=== PATIENT | female | born 1990 | race Native Hawaiian/Other Pacific Islander ===

== ENCOUNTER 2018-06-22 22:45 | Outpatient (CLI) | payer OTHER ==
[~2018-06-22] VITALS: Ht 165.1 cm; Wt 94.3 kg
[2018-06-22 23:10] VITALS: BP 110/60
[2018-06-22] MEDS ORDERED: PRENTAB9 PO (23:55)
[2018-06-22] MEDS ORDERED: BENA25CA4 PO (23:55)
--- NOTE | 2018-06-24 16:33 | HPE ---
DATE OF ADMISSION: 06/22/2018 27-year-old 3, para 2, LMP 10/24/2017, EDC 08/22/2018 at 31 and three with history of right lower quadrant pain when she is coughing and she has a significant cold. Past history: In 2005, 41 weeks, induction of labor, vaginal delivery, male, 7 pounds. In 07/2007, 40 weeks, spontaneous delivery, male, 6 pounds 1 ounce. Risk factors: Dichorionic diamniotic twins, elevated blood sugar with a 1-hour glucose, questionable UTI at the present time, and has a significant cold. Labs: Are A+, HIV negative, hepatitis negative, RPR negative, rubella immune. Varicella immune. Pap normal. Urine negative. 1-hour GTT was 165. Her 3-hour GTT fasting was 91, 1-hour 183, 2-hour 155, and 3-hour 137. On examination, she appears congested today. No wheezes or rhonchi. Lungs are clear to the bases. She has a nonproductive cough, although occasionally there is a bit of phlegm. She does have right lower quadrant tenderness every time she coughs. There is no vaginal bleeding or loss. She had a category one strip on both twins and ultrasound done showed MAYA over the spot with anterior placenta and we can see the limb pushing up on that specific area but no evidence of subplacental hemorrhage or bleeding. Urine is 1.015, pH 6, nitrites positive, leukocytes positive. Blood pressure 110/60, respirations 18, pulse 115, temperature 98.5. Rest of the examination is unremarkable. Normocephalic, atraumatic. Neck full range of motions. Pupils equal and reactive to light. Chest is not congested but she has significant sinus irritation and a dripping nose. Oropharyngeal airway is normal, slight reddening. Chest is clear. Distal pulses are symmetric. No evidence of DVT, PE or superficial phlebitis. No CVA tenderness. Four quadrant bowel sounds are noted. Appropriate symphysis fundus height. No rashes, lesions or pruritus. She does have tattoos. No arthralgia or myalgia. No complaint of joint pain. No complaint of cough, wheeze, shortness of breath or dyspnea on exertion. No bleeding. Neurologically complete. No incontinency, urgency or frequency. No nausea, vomiting, diarrhea or constipation. Her diabetic issues, as mentioned, she had a 3-hour elevated GTT. No abnormal Pap smears. Past medical, surgical, family history is noncontributory. She does not smoke, drink or abuse drugs. She is . Good support systems and no domestic violence. In summary we have a 33-week, dichorionic diamniotic twins with issues of a cough, cold and right lower quadrant pain secondary to coughing. We recommend a belly band and cold medication, hydration, humidification and followup with routine appointment. The patient was discharged undelivered.
== END 2018-06-23 01:45 | disposition home or self-care (01) ==
LOC: M LDO 22:45 → EDBD 22:45 → M LDO 06-23 01:45
PROVIDERS: ATTEND Obstetrics & Gynecology
DX: O30.043 Twin pregnancy, dichorionic/diamniotic, third trimester (principal); O99.513 Diseases of the respiratory system complicating pregnancy, third trimester; J00 Acute nasopharyngitis [common cold]; Z3A.31 31 weeks gestation of pregnancy
CPT/HCPCS: 59025; 76815; 87088; G0378; G0463

== ENCOUNTER 2018-07-07 01:13 | Outpatient (CLI) | payer OTHER ==
[~2018-07-07 01:13] MED LIST: BENA25CA4 PO; PRENTAB9 PO
--- NOTE | 2018-07-07 03:28 | IPNPDOC ---
Text Note Date of Service The patient was seen on 07/07/18. NOTE Triage Note Claudia is a 27yo F with di-di twin at 33w3d who presents tonight for ctx. She states for 2 hours she noticed increasingly regular and more uncomfortable ctx. She states she has stayed well hydrated. No recent intercourse. Has not been exerting herself. No other symptoms. She notes she had routine monitoring yesterday in the office and was noted to have some ctx on the monitor also, but wasn't feeling them then. No abnormal vaginal discharge. No LOF. Good movement. No f/c/n/v/CP/SOB. 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 No regular ctx on toco. SCE 1/thick/high. Reassuring status x2 and normal vitals. Plan: -safe for discharge home -discussed return precautions -discussed continued good hydration -keep next routine monitoring and COB visit on 07/08/18 MD Nancy Cuevas Katrina D MD Jul 07, 2018 03:28
== END 2018-07-07 03:26 | disposition home or self-care (01) ==
LOC: M LDO 01:13
PROVIDERS: ATTEND Obstetrics & Gynecology
DX: O47.9 False labor, unspecified (principal); O30.043 Twin pregnancy, dichorionic/diamniotic, third trimester; Z3A.33 33 weeks gestation of pregnancy
CPT/HCPCS: 59025; G0378; G0463

== ENCOUNTER → 2018-07-12 | Outpatient (CLI) | payer OTHER ==
--- NOTE | 2018-07-13 04:58 | REP ---
Clinical: Twin gestation. Growth evaluation Comparison: None . Findings: Examination demonstrates diamniotic dichorionic twin gestation. Cervix appears closed. Concordant growth is noted. Gestational age by LMP at 34 weeks 1 day with estimated date of delivery 08/22/2018 . TWIN A: Twin A identified in cephalic presentation along the maternal left side. Placenta is noted anterior and grade grade II without evidence for placenta previa or abruption. motion is appreciated. Amniotic fluid volume is normal and the deepest pocket measures 5.2 cm cm. FHR equals 144 beats per minute. BPD 8.2 cm 32 weeks 6 days HC 29.8 cm 33 weeks 0 days AC 27.8 cm 31 weeks 6 days FL 6.5 cm 33 weeks 3 days HL 5.7 cm 33 weeks 1 day HC/AC ratio 1.07 Umbilical cord SD ratio: 2.73 Gestational age by current measurements: 32 weeks 6 days . Estimated weight 1997 grams ( 18th percentile). Limited anatomical assessment without obvious abnormality. Normal visualized structures including lungs, four-chamber heart/ventricular outflow tracts, diaphragm, stomach, cord insertion, three-vessel cord, kidneys/bladder. ------- TWIN B: Twin B identified in cephalic presentation along the maternal right side. Placenta is noted anterior and grade grade II without evidence for placenta previa or abruption. motion is appreciated. Amniotic fluid volume is normal and the deepest pocket measures 4.8 cm cm. FHR equals 140 beats per minute. BPD 8.0 cm 32 weeks 1 day HC 29.3 cm 32 weeks 6 days AC 38.5 70 34 weeks 3 days FL 6.4 cm 33 weeks 0 days HL 5.8 cm 33 weeks 4 days HC/AC ratio 0.96 Umbilical cord SD ratio: 3.29 Gestational age by current measurements: 33 weeks 1 day . Estimated weight 2232 grams ( 36 percentile). Limited anatomical assessment without obvious abnormality. Normal visualized structures including lungs, diaphragm, stomach, cord insertion, three-vessel cord, kidneys/bladder. Impression: Diamniotic dichorionic twin gestation demonstrating appropriate concordant growth. No gross abnormalities are identified. Electronically Signed by Franklin Correa MD 07/13/2018 04:50 A
== END ==
LOC: M RAD 17:20
PROVIDERS: ATTEND Obstetrics & Gynecology
DX: O30.043 Twin pregnancy, dichorionic/diamniotic, third trimester (principal); Z3A.34 34 weeks gestation of pregnancy

== ENCOUNTER 2018-08-04 05:38 | Inpatient (IN) | payer OTHER ==
[~2018-08-04] VITALS: Ht 165.1 cm; Wt 98.5 kg
[2018-08-04] VITALS (26 sets, daily range): BP systolic 116–174; BP diastolic 55–90
[2018-08-04] MEDS ORDERED: LR 1,000 ML IV SCH (06:53)
[2018-08-04] MEDS ORDERED: LACTATED RINGER'S 1000 ML IV STA (06:53)
[2018-08-04 07:09] LABS: HEMATOCRIT 30.5 % (36.0-47.0); HEMOGLOBIN 9.7 g/dl (12.0-15.5); MEAN CORPUSCULAR HEMOGLOBIN 25.7 pg (27.0-33.0); MEAN CORPUSCULAR HGB CONC 31.8 g/dl (32.0-36.5); MEAN CORPUSCULAR VOLUME 80.7 fl (80.0-96.0); PLATELET COUNT, AUTOMATED 216 10^3/uL (150-450); RED BLOOD COUNT 3.78 10^6/uL (4.00-5.40); WHITE BLOOD COUNT 12.2 10^3/uL (4.0-10.0)
[2018-08-04] MEDS ORDERED: FENTANYL 2MCG/ML ROPIVACAINE 0.2% IN 0.9% NACL 100ML IVBAG As Ordered ONE (07:30)
[2018-08-04] MEDS ORDERED: PENICILLIN G POTASSIUM IV 5 MU in D5W MINI-BAG PLUS 100 ML IV STA ×2 (07:34→07:45)
[2018-08-04] MEDS ORDERED: REFRIGERATOR IV KEYS XX PRN ×2 (07:45→08:15)
[2018-08-04] MEDS ORDERED: FENTANYL/ROPIVACAINE/NACL BAG 100 ML EPIDURAL SCH ×2 (07:45→08:15)
[2018-08-04] MEDS ORDERED: ePHEDrine SULFATE 25 MG/5 ML(5MG/ML) SYRINGE IV PRN (08:15)
[2018-08-04] MEDS ORDERED: EPIDURAL COMMENT XX SCH (08:15)
[2018-08-04] MEDS ORDERED: LACTATED RINGER'S 1000 ML IV PRN (08:15)
[2018-08-04] MEDS ORDERED: ONDANSETRON 4MG/2ML VIAL (J2405) IV PRN (08:15)
[2018-08-04] MEDS ORDERED: diphenhydrAMINE INJ 50MG/ML VIAL (J1200) IV PRN (08:15)
[2018-08-04] MEDS ORDERED: EPIDURAL/PCA KEYS XX PRN (08:15)
[2018-08-04] MEDS ORDERED: NALOXONE INJ 0.4 MG/1 ML VIAL (J2310) IV PRN (08:15)
--- NOTE | 2018-08-04 08:35 | HPEPDOC ---
Obstetrical History & Physical General Date of Admission Aug 04, 2018 at 05:38 History of Present Illness Claudia is a 27yo with di-di twin gestation at 37w3d by embryo transfer date presenting for CC of LOF. Pt states her water broke at 0440 when she was up using the bathroom, clear, she is now having very painful regular ctx. No vaginal bleeding, good movement. No n/v/f/c. Chief Complaint: Contractions, term, LOF, term Information Provided By: Patient Care Care: Good Care Dating Final EDC: Aug 22, 2018 Final EDC by: LMP (embryo transfer date) Antepartum Course Diagnos(e)s complicated by Class B DM vs A1GDM, no medications. She also had starting BMI of 30. 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: No pertinent history Past Medical History Medical History Starting BMI of 30 Surgical History: Appendectomy, [place] teeth Family History Significant Family History: No pertinent family hx Social History Marital Status: Family situation: Spouse/partner home Psychosocial History: No pertinent psych hx * Smoker: non-smoker Alcohol: Denies Drugs: denies Imunizations Tdap status: current Influenza Status: current Allergies Coded Allergies: No Known Allergies (Unverified , 07/07/18) Medications Scheduled Diphenhydramine HCl (Benadryl Allergy) 25 Mg Cap, 1 CAP PO QPM Multivitamins/ ( 27-0.8 mg) 1 Tab Tab, 1 TAB PO DAILY Physical Examination Physical Examination GENERAL: Alert and oriented times three. ABDOMEN: Gravid and non-tender to touch. FETUS: Twin A is vertex (VTX) by sterile vaginal examination (SVE), both fetuses are cephalic by TAUS EXTREMITIES: trace pedal edema Pertinent Laboratoy Data Blood Type: A+ RBC Antibody Screen: Negative HIV: Negative Hepatitis B: Negative Hepatitis C: Unknown Rapid Plasma Reagin: Nonreactive Rubella: Immune Varicella: Immune Chlamydia/Gonorrhea: Negative Group B Streptococcus: Positive Cystic Fibrosis: Negative Glucose Tolerance Test: 165 (3hr: 91/183/155/137) Anatomy Ultrasound Ultrasound Date: Apr 12, 2018 Placenta Location: Other (Twin A anterior and twin B anterior) Normal Anatomy: Yes (both twins normal anatomy) Placenta Previa: No Other Ultrasounds 07/12 growth scan at 36wk at [facility]: cephalic/cephalic, 18%ile (1997g) and 36%ile (2232g) Steroid Therapy Steroid Therapy: No Vaginal Examination Dilation: 6 cm Effacement: 80% Station: -2 Cervical Consistency: Soft Cervical Position: Middle Presentation: Cephalic presentation Assessment Heart Rate (FHR): 120 (twin B 130's) Variability: Moderate Accelerations: Positive Decelerations: None Tocometer Contractions: Yes Frequency: regular, every 2-5 min. Duration: greater than 60 seconds Strength: palpated as strong Assessment/Plan Assessment Claudia is a 27yo with di-di twin gestation at 37w3d by embryo transfer date presenting in active labor with SROM at 0440. SCE /-2, grossly ruptured with clear fluid. Cephalic/Cephalic by SCE and TAUS. GBS positive. 36wk growth scan showed concordant growth (18%/36%). Patient strongly desires vaginal delivery. complicated by Class B DM vs A1GDM, no medications. She also had starting BMI of 30. Plan Admit and orient. Counseled and consented for . Discussed increased risk for conversion to section and patient is accepting of this. Diet: NPO for now Group B Streptococcus (GBS) positive, PCN per protocol Labs and intravenous (IV) per unit protocol. Lactated Ringers (LR): Bolus 500 mL, then at 125 mL/hr. Anticipate normal spontaneous delivery () C-S as appropriate I requested that epidural be expedited MD Nancy Cuevas Katrina D MD Aug 04, 2018 07:12
[2018-08-04] MEDS: PRENATAL VITAMINS CHEWABLE TABLET PO SCH (09:00)
[2018-08-04] MEDS ORDERED: PENICILLIN G POTASSIUM IV 2.5 MU in APPROPRIATE DILUENT 1 EA IV SCH ×2 (11:45→12:00)
[2018-08-04] MEDS ORDERED: OXYTOCIN 30 UNITS IN 0.9% NaCl 500ML IV BAG (J2590) As Ordered ONE ×2 (12:46→14:27)
[2018-08-04] MEDS ORDERED: OXYTOCIN DRIP 30 UNITS in APPROPRIATE DILUENT 1 EA IV SCH ×4 (14:24)
[2018-08-04] MEDS ORDERED: MEASLES,MUMPS,RUBELLA VACCINE INJ (MMR-II) (90707) SC SCH (14:30)
[2018-08-04] MEDS ORDERED: miSOPROStol 200 MCG TAB (S0191) PR ONE (14:30)
[2018-08-04] MEDS ORDERED: DIBUCAINE 1% OINTMENT 30GM TOP PRN (14:30)
[2018-08-04] MEDS ORDERED: ACETAMINOPHEN TAB 650MG DOSE (2X325MG) PO PRN (14:30)
[2018-08-04] MEDS ORDERED: RHOGAM 300 MCG (1500 IU) INJ (J2790) IM SCH (14:30)
[2018-08-04] MEDS ORDERED: METOCLOPRAMIDE INJ 10MG/2ML VIAL (J2765) IV PRN (14:30)
--- NOTE | 2018-08-04 14:55 | DNPDOC ---
[facility] Delivery Note Delivery Note DATE OF DELIVERY: [id number] and 1354 PREDELIVERY DIAGNOSIS: 37 3/7 weeks' gestation and labor. POST DELIVERY DIAGNOSIS: Delivered. PROCEDURE: Spontaneous vaginal delivery x2 VIOLIN REPAIRER: Dr. Andrade ANESTHESIA: epidural ESTIMATED BLOOD LOSS: 500 mL. FINDINGS: A: 2680 gm, B: 2760 gm, Score 9/9 x2 DELIVERY SUMMARY: SBAR from Dr Cruz this AM at 730. Active labor. GBS pos and was 6 cm at admit check, therefore I did not examine her until after noon when her second dose of ABX was in. At that time was C/C/+2/vtx and went to the OR for delivery. spa technician was gowned and gloved and ready for potetial . Great effort and del of baby A was uncomplicated with no delay of the vtx or ant/post shoulders. To abd in good shape. Cord C/C by FOB. single umb clamp on cord A. Baby B with vtx presentation, after vtx well applied AROM with clr fluid performed. Great effort and del of baby B was uncomplicated with no delay of the vtx or ant/post shoulders. To abd in good shape. Cord C/C by FOB. 2 umb clamps on cord B. Placenta's del'd intact, attached to each other, fundus firm and pit going 999. Cytotec 1000 mcg placed rectally, gloves changed. Bimanual exam with a moderate amt clot expressed with fundal massgae, no trailing membranes. No lacs to cx, vag, per. Uncomplicated X2. Nathan ANDRADE,ROXANA Mcgowan MD Aug 04, 2018 14:55
[2018-08-04] MEDS ORDERED: MAPA500T2 PO (18:32)
[2018-08-04] MEDS: IBUPROFEN 800 MG TAB PO PRN (18:48)
[2018-08-04] MEDS: DOCUSATE SODIUM 100 MG CAP PO SCH (21:25)
[2018-08-05] MEDS: IBUPROFEN 800 MG TAB PO PRN (05:56)
[2018-08-05 06:05] VITALS: BP 118/75
[2018-08-05] MEDS: DOCUSATE SODIUM 100 MG CAP PO SCH (08:22)
[2018-08-05] MEDS: PRENATAL VITAMINS CHEWABLE TABLET PO SCH (08:22)
[2018-08-05] MEDS ORDERED: MAPA500T2 PO (09:04)
[2018-08-05] MEDS ORDERED: IBUP-1114 PO (09:04)
[2018-08-05] MEDS ORDERED: DIBU1OIN TOP (09:04)
[2018-08-05] MEDS ORDERED: COLA100C5 PO (09:04)
--- NOTE | 2018-08-05 09:19 | IPNPDOC ---
Text Note Date of Service The patient was seen on 08/05/18. NOTE PPD1 States feeling well, pain controlled with prescribed meds. Babies bonding and feeding well. No heavy VB. Lochia slowing. Ambulating and voiding well. Tolerating PO without issues. VSSAF NAD A&O RRR CTAB LE no C/C/E Ut at U, firm a/p: Doing well. Cont routine care. D/C today, to boarding if babies not d/c'd. Sessions VS,Manny, I+O VSManny I+O Vital Signs Date Time Temp Pulse Resp B/P (MAP) Pulse Ox O2 Delivery O2 Flow Rate FiO2 08/05/18 06:05 97.4 72 17 118/75 (89) 08/04/18 18:35 98 I&O- Last 24 Hours up to 6 AM 08/05/18 06:00 Intake Total 5411 ml Output Total 900 ml Balance 4511 ml SESSIONS,ROXANA Mcgowan MD Aug 05, 2018 09:19
--- NOTE | 2018-08-05 11:59 | IPN ---
DATE OF SERVICE: 08/05/2018 This lady is a 27-year-old 3 now para 5 admitted with diamniotic dichorionic twins with spontaneous rupture of membranes at 6 cm, contractions 37.3 weeks. She had a spontaneous vaginal delivery of twin A at 2680 grams, of 9 and 9 at one and five minutes respectively. Twin B female 2760 grams, of 9 and 9 at one and five minutes respectively. She did have an epidural in place. Risk factors are class B diabetic. Diamniotic dichorionic twins. Group B Streptococcus (GBS) positive. This morning, her vital signs, blood pressure 118/75, respirations 17, pulse 72, temperature 97.4. Her admitting hemoglobin was 9.7, hematocrit 30.5 and platelets were 216. We discussed phlebitis, cystitis, mastitis, endometritis, cellulitis, diet, exercise, pain management, perineal, breast and wound care. She did not have an episiotomy nor did she have any tears or lacerations. Abdomen soft, uterus two below. Lochia is moderate. Four quadrant bowel sounds are noted. Perineum is intact and healing. She has no rashes, lesions or pruritus. No arthralgia, myalgia. No complaints of cough, wheeze, shortness of breath or dyspnea on exertion. No chest pain. Neuro complete. No urgency. No nausea, vomiting or diarrhea. In summary, we have a diamniotic dichorionic twin spontaneous vaginal delivery times two 37.3 weeks. Plan on discharge for tomorrow morning.
== END 2018-08-05 16:00 | disposition home or self-care (01) | DRG 807 ==
LOC: M LDI 05:38 → M OBS 18:22
PROVIDERS: ADMIT Obstetrics & Gynecology; ATTEND Obstetrics & Gynecology
PROC: 10E0XZZ Delivery of Products of Conception, External Approach (ICD-10-PCS; principal; 2018-08-04)
PROC: 10E0XZZ Delivery of Products of Conception, External Approach (ICD-10-PCS; 2018-08-04)
PROC: 10907ZC Drainage of Amniotic Fluid, Therapeutic from Products of Conception, Via Natural or Artificial Opening (ICD-10-PCS; 2018-08-04)
DX: O24.429 Gestational diabetes mellitus in childbirth, unspecified control (principal); Z37.2 Twins, both liveborn; Z3A.37 37 weeks gestation of pregnancy; O99.820 Streptococcus B carrier state complicating pregnancy; O30.043 Twin pregnancy, dichorionic/diamniotic, third trimester